=== PATIENT | female | born 1945 | race Caucasian/White ===

== ENCOUNTER → 2019-09-11 11:00 | Outpatient (BNVA) | payer MEDICARE, OTHER, SELFPAY | PROVIDERS: Family Provider Family Medicine; PCP Family Medicine; Visit Provider Nurse Practitioner Family | DX: I10 Essential (primary) hypertension (principal); E78.5 Hyperlipidemia, unspecified; E11.9 Type 2 diabetes mellitus without complications; I48.91 Unspecified atrial fibrillation; E03.9 Hypothyroidism, unspecified | CPT/HCPCS: 80048; 80061; 82044; 83036; 84460 ==

== ENCOUNTER → 2019-10-02 10:27 | Outpatient (BNVA) | payer MEDICARE, OTHER, SELFPAY | PROVIDERS: Family Provider Family Medicine; PCP Family Medicine; Visit Provider Nurse Practitioner Family | DX: R32 Unspecified urinary incontinence (principal); R31.9 Hematuria, unspecified | CPT/HCPCS: 81003 ==

== ENCOUNTER → 2019-10-04 16:30 | Outpatient (BNVA) | payer MEDICARE, OTHER, SELFPAY | PROVIDERS: Family Provider Family Medicine; PCP Nurse Practitioner Family; Visit Provider Internal Medicine Cardiovascular Disease | DX: I35.0 Nonrheumatic aortic (valve) stenosis (principal); I50.32 Chronic diastolic (congestive) heart failure; R06.02 Shortness of breath; I48.0 Paroxysmal atrial fibrillation; E78.2 Mixed hyperlipidemia; E11.65 Type 2 diabetes mellitus with hyperglycemia; E03.9 Hypothyroidism, unspecified; G47.33 Obstructive sleep apnea (adult) (pediatric); I73.9 Peripheral vascular disease, unspecified; I11.0 Hypertensive heart disease with heart failure | CPT/HCPCS: 80048; 80162; 83880 ==

== ENCOUNTER 2019-10-19 10:21 | Outpatient (CLI) | payer MEDICARE, OTHER, SELFPAY ==
--- NOTE | 2019-10-19 10:32 | USCV_ITS ---
Oumou Rowan Age: 73 Gender: F : 1945 Exam Date: 10/19/2019 10:52 Ordering Phys: Tina Saunders MD ([email or web address]) Technologist: Shira Santamaria Exam Location: [facility] [place] Indication: BP: 120 / 70 HR: 62 Rhythm: Sinus Technical Quality: Adequate MEASUREMENTS (Male / Female) Normal Values 2D ECHO LV Diastolic Diameter PLAX 3.6 cm 4.2 - 5.9 / 3.9 - 5.3 cm LV Systolic Diameter PLAX 3.8 cm LV Chamber Size 3.9 cm IVS Diastolic Thickness 1.1 cm 0.6 - 1.0 / 0.6 - 0.9 cm IVS Systolic Thickness 1.7 cm LVPW Diastolic Thickness 1.3 cm 0.6 - 1.0 / 0.6 - 0.9 cm LVPW Systolic Thickness 1.6 cm RV Chamber Size 4.0 cm LVOT Diameter 2.1 cm LV Ejection Fraction 2D Teich 16.9 % LV Ejection Fraction MOD 2C 58.3 % LV Ejection Fraction 2C AL 54.6 % LA Diameter 5.1 cm LA Width 3.2 cm LA Height 5.1 cm RA Width 4.0 cm RA Height 4.8 cm Aorta at Sinotubular Diameter 2.3 cm M-MODE LV Diastolic Diameter MM 3.9 cm 4.2 - 5.9 / 3.9 - 5.3 cm LV Systolic Diameter MM 2.7 cm LV Ejection Fraction MM Teich 58.5 % IVS Diastolic Thickness MM 1.1 cm 0.6 - 1.0 / 0.6 - 0.9 cm IVS Systolic Thickness MM 1.4 cm LVPW Diastolic Thickness MM 0.9 cm 0.6 - 1.0 / 0.6 - 0.9 cm LVPW Systolic Thickness MM 1.7 cm RV Diastolic Diameter MM 1.8 cm Aortic Annulus Diameter 1.9 cm LA Ao Ratio MM 2.7 MV E Point Septal Separation 0.3 cm DOPPLER AV Peak Velocity 444.0 cm/s LVOT Peak Velocity 101.0 cm/s AV Area Cont Eq vti 0.9 cm squared AV Area Cont Eq pk 0.8 cm squared MV Area PHT 2.9 cm squared Mitral E to A Ratio 1.0 MV E' Velocity 8.0 cm/s Mitral E to MV E' Ratio 13.7 Mitral E to LV E' Lateral Ratio 14.3 Mitral E to LV E' Septal Ratio 13.2 TR Peak Velocity 191.6 cm/s TR Peak Gradient 14.7 mmHg TR Mean Velocity 136.5 cm/s TR Mean Gradient 8.5 mmHg TR Velocity Time Integral 60.3 cm TV Peak E Velocity 70.0 cm/s Right Atrial Pressure 5.0 mmHg Pulmonary Artery Systolic Pressu 19.7 mmHg PV Peak Velocity 71.0 cm/s RV Acceleration Time 0.1 s RV Ejection Time 0.4 s RV AcT/ET 0.3 FINDINGS Left Ventricle Normal left ventricular size and systolic function, EF 62 %. Mild left ventricular hypertrophy. No regional wall motion abnormalities. Grade II/IV diastolic dysfunction, moderately elevated filling pressures. Right Ventricle Normal right ventricular size and systolic function. Right Atrium Mildly increased right atrial size. Left Atrium Mildly increased left atrial size. Mitral Valve Thickened mitral valve. Moderate to heavy mitral annular calcification. Aortic Valve Thickened aortic valve. Severe aortic valve stenosis, mean gradient 43.6 mmHg, LUNA 0.87 cm squared. Peak velocity was 4.4 m/s with a peak gradient of 79 mmHg. Tricuspid Valve Mild tricuspid valve regurgitation. Pulmonic Valve Pulmonic valve not well visualized. Pericardium No pericardial effusion. Aorta Normal aortic annulus size. CONCLUSIONS Severe aortic valve stenosis with a valve area of 0.87 cm squared.(Peak velocity of 4.4 m/s with a peak gradient of 79 mmHg and a mean gradient of 44 mmHg) Normal left ventricular size and systolic function, EF 62 %. Mild left ventricular hypertrophy. No regional wall motion abnormalities. Grade II/IV diastolic dysfunction, moderately elevated filling pressures. Thickened mitral valve. Moderate to heavy mitral annular calcification. Mild tricuspid valve regurgitation. Compared to the study from 06/07/2018, there is slight worsening of the mean gradient across the aortic valve Dr Tina Saunders MD FAC (Electronically Signed) Final Date: 19 October 2019 14:59 S
== END 2019-10-19 10:22 | disposition home or self-care (01) ==
LOC: US 10:23
PROVIDERS: Family Provider Nurse Practitioner Family; PCP Nurse Practitioner Family; Visit Provider Internal Medicine Cardiovascular Disease
DX: I08.3 Combined rheumatic disorders of mitral, aortic and tricuspid valves (principal)
CPT/HCPCS: 93306

== ENCOUNTER → 2019-12-03 14:52 | Outpatient (BNVA) | payer MEDICARE, OTHER, SELFPAY | PROVIDERS: Family Provider Nurse Practitioner Family; PCP Nurse Practitioner Family; Visit Provider Nurse Practitioner Family | DX: N39.46 Mixed incontinence (principal) | CPT/HCPCS: 81001 ==

== ENCOUNTER → 2019-12-26 11:28 | Outpatient (BNVA) | payer MEDICARE, OTHER, SELFPAY | PROVIDERS: Family Provider Nurse Practitioner Family; PCP Nurse Practitioner Family; Visit Provider Nurse Practitioner Family | DX: E03.9 Hypothyroidism, unspecified (principal); E11.65 Type 2 diabetes mellitus with hyperglycemia; I50.32 Chronic diastolic (congestive) heart failure; Z00.00 Encounter for general adult medical examination without abnormal findings; L03.90 Cellulitis, unspecified | CPT/HCPCS: 83036; 84443 ==

== ENCOUNTER → 2020-01-21 15:23 | Outpatient (BNVA) | payer MEDICARE, OTHER, SELFPAY | PROVIDERS: Family Provider Nurse Practitioner Family; PCP Nurse Practitioner Family; Visit Provider Nurse Practitioner Family | DX: T81.41XA Infection following a procedure, superficial incisional surgical site, initial encounter (principal); Z79.01 Long term (current) use of anticoagulants; T81.49XA Infection following a procedure, other surgical site, initial encounter | CPT/HCPCS: 85610; 87070 ==

== ENCOUNTER → 2020-02-05 14:46 | Outpatient (BNVA) | payer MEDICARE, OTHER, SELFPAY | PROVIDERS: Family Provider Nurse Practitioner Family; PCP Nurse Practitioner Family; Visit Provider Registered Nurse | DX: Z79.01 Long term (current) use of anticoagulants (principal) | CPT/HCPCS: 85610 ==

== ENCOUNTER → 2020-02-12 14:25 | Outpatient (BNVA) | payer MEDICARE, OTHER, SELFPAY | PROVIDERS: Family Provider Nurse Practitioner Family; PCP Nurse Practitioner Family; Visit Provider Nurse Practitioner Family | DX: Z95.2 Presence of prosthetic heart valve (principal) | CPT/HCPCS: 85610 ==

== ENCOUNTER → 2020-02-18 13:33 | Outpatient (BNVA) | payer MEDICARE, OTHER, SELFPAY | PROVIDERS: Family Provider Nurse Practitioner Family; PCP Nurse Practitioner Family; Visit Provider Nurse Practitioner Family | DX: I50.32 Chronic diastolic (congestive) heart failure (principal); D69.9 Hemorrhagic condition, unspecified | CPT/HCPCS: 85610 ==

== ENCOUNTER → 2020-02-25 13:57 | Outpatient (BNVA) | payer MEDICARE, OTHER, SELFPAY | PROVIDERS: Family Provider Nurse Practitioner Family; PCP Nurse Practitioner Family; Visit Provider Nurse Practitioner Family | DX: I35.0 Nonrheumatic aortic (valve) stenosis (principal); Z95.2 Presence of prosthetic heart valve | CPT/HCPCS: 85610 ==

== ENCOUNTER → 2020-02-28 15:40 | Outpatient (BNVA) | payer MEDICARE, OTHER, SELFPAY | PROVIDERS: Family Provider Nurse Practitioner Family; PCP Nurse Practitioner Family; Visit Provider Internal Medicine Cardiovascular Disease | DX: R06.02 Shortness of breath (principal); I50.32 Chronic diastolic (congestive) heart failure; Z95.2 Presence of prosthetic heart valve; I48.0 Paroxysmal atrial fibrillation; G47.33 Obstructive sleep apnea (adult) (pediatric); E78.2 Mixed hyperlipidemia; E11.65 Type 2 diabetes mellitus with hyperglycemia; F17.210 Nicotine dependence, cigarettes, uncomplicated; I11.0 Hypertensive heart disease with heart failure; I50.43 Acute on chronic combined systolic (congestive) and diastolic (congestive) heart failure | CPT/HCPCS: 80048; 83880 ==

== ENCOUNTER → 2020-03-05 14:26 | Outpatient (BNVA) | payer MEDICARE, OTHER, SELFPAY | PROVIDERS: Family Provider Nurse Practitioner Family; PCP Nurse Practitioner Family; Visit Provider Registered Nurse | DX: Z95.2 Presence of prosthetic heart valve (principal) | CPT/HCPCS: 85610 ==

== ENCOUNTER → 2020-03-18 13:19 | Outpatient (BNVA) | payer MEDICARE, OTHER, SELFPAY | PROVIDERS: Family Provider Nurse Practitioner Family; PCP Nurse Practitioner Family; Visit Provider Nurse Practitioner Family | DX: I48.0 Paroxysmal atrial fibrillation (principal); I50.32 Chronic diastolic (congestive) heart failure; Z95.2 Presence of prosthetic heart valve; I73.9 Peripheral vascular disease, unspecified; J30.2 Other seasonal allergic rhinitis; Z79.01 Long term (current) use of anticoagulants | CPT/HCPCS: 80048; 83880; 85610 ==

== ENCOUNTER → 2020-04-02 13:36 | Outpatient (BNVA) | payer MEDICARE, OTHER, SELFPAY | PROVIDERS: Family Provider Nurse Practitioner Family; PCP Nurse Practitioner Family; Visit Provider Pediatrics | DX: Z95.2 Presence of prosthetic heart valve (principal) | CPT/HCPCS: 85610 ==

== ENCOUNTER → 2020-04-03 16:30 | Outpatient (BNVA) | payer MEDICARE, OTHER, SELFPAY | PROVIDERS: Family Provider Nurse Practitioner Family; PCP Nurse Practitioner Family; Visit Provider Nurse Practitioner Family | DX: E11.59 Type 2 diabetes mellitus with other circulatory complications (principal); I25.10 Atherosclerotic heart disease of native coronary artery without angina pectoris | CPT/HCPCS: 83036 ==

== ENCOUNTER → 2020-04-16 11:08 | Outpatient (BNVA) | payer MEDICARE, OTHER, SELFPAY | PROVIDERS: Family Provider Nurse Practitioner Family; PCP Nurse Practitioner Family; Visit Provider Nurse Practitioner Family | DX: E03.9 Hypothyroidism, unspecified (principal); I48.0 Paroxysmal atrial fibrillation | CPT/HCPCS: 84443 ==

== ENCOUNTER → 2020-04-30 14:09 | Outpatient (BNVA) | payer MEDICARE, OTHER, SELFPAY | PROVIDERS: Family Provider Nurse Practitioner Family; PCP Nurse Practitioner Family; Visit Provider Internal Medicine Cardiovascular Disease | DX: I48.0 Paroxysmal atrial fibrillation (principal); I50.32 Chronic diastolic (congestive) heart failure | CPT/HCPCS: 85610 ==

== ENCOUNTER → 2020-05-07 13:13 | Outpatient (BNVA) | payer MEDICARE, OTHER, SELFPAY | PROVIDERS: Family Provider Nurse Practitioner Family; PCP Nurse Practitioner Family; Visit Provider Internal Medicine Cardiovascular Disease | DX: I35.0 Nonrheumatic aortic (valve) stenosis (principal) | CPT/HCPCS: 85610 ==

== ENCOUNTER → 2020-05-15 10:41 | Outpatient (BNVA) | payer MEDICARE, OTHER, SELFPAY | PROVIDERS: Family Provider Nurse Practitioner Family; PCP Nurse Practitioner Family; Visit Provider Internal Medicine Cardiovascular Disease | DX: I35.0 Nonrheumatic aortic (valve) stenosis (principal); Z95.2 Presence of prosthetic heart valve | CPT/HCPCS: 85610 ==

== ENCOUNTER 2020-06-04 14:59 | Outpatient (CLI) | payer MEDICARE, OTHER, SELFPAY ==
--- NOTE | 2020-06-04 15:00 | USCV_ITS ---
Oumou Rowan Age: 74 Gender: F : 1945 Exam Date: 06/04/2020 15:15 Ordering Phys: Tina Saunders MD ([email or web address]) Technologist: Shira Santamaria Exam Location: [facility] [place] Indication: TAVR BP: 140 / 76 HR: 70 Rhythm: Sinus Technical Quality: Adequate MEASUREMENTS (Male / Female) Normal Values 2D ECHO LV Diastolic Diameter PLAX 3.5 cm 4.2 - 5.9 / 3.9 - 5.3 cm LV Systolic Diameter PLAX 2.7 cm LV Chamber Size 3.9 cm IVS Diastolic Thickness 1.7 cm 0.6 - 1.0 / 0.6 - 0.9 cm IVS Systolic Thickness 1.5 cm LVPW Diastolic Thickness 0.9 cm 0.6 - 1.0 / 0.6 - 0.9 cm LVPW Systolic Thickness 1.5 cm RV Chamber Size 2.9 cm LVOT Diameter 2.0 cm LV Ejection Fraction 2D Teich 44.0 % LV Ejection Fraction MOD 2C 83.4 % LV Ejection Fraction 2C AL 84.9 % LA Diameter 4.8 cm LA Width 3.3 cm LA Height 5.7 cm RA Width 3.8 cm RA Height 5.3 cm Aorta at Sinotubular Diameter 2.2 cm M-MODE LV Diastolic Diameter MM 5.2 cm 4.2 - 5.9 / 3.9 - 5.3 cm LV Systolic Diameter MM 3.9 cm LV Ejection Fraction MM Teich 48.9 % IVS Diastolic Thickness MM 0.6 cm 0.6 - 1.0 / 0.6 - 0.9 cm IVS Systolic Thickness MM 1.6 cm LVPW Diastolic Thickness MM 1.3 cm 0.6 - 1.0 / 0.6 - 0.9 cm LVPW Systolic Thickness MM 1.6 cm RV Diastolic Diameter MM 1.2 cm Aortic Annulus Diameter 2.5 cm LA Ao Ratio MM 2.3 MV E Point Septal Separation 0.5 cm DOPPLER AV Peak Velocity 259.0 cm/s LVOT Peak Velocity 87.0 cm/s AV Area Cont Eq vti 1.1 cm squared AV Area Cont Eq pk 1.0 cm squared MV Area PHT 3.5 cm squared Mitral E to A Ratio 1.3 MV E' Velocity 61.5 cm/s Mitral E to MV E' Ratio 17.9 Mitral E to LV E' Lateral Ratio 16.8 Mitral E to LV E' Septal Ratio 19.3 TR Peak Velocity 170.6 cm/s TR Peak Gradient 11.6 mmHg TR Mean Velocity 123.4 cm/s TR Mean Gradient 6.5 mmHg TR Velocity Time Integral 43.0 cm TV Peak E Velocity 84.0 cm/s Right Atrial Pressure 3.0 mmHg Pulmonary Artery Systolic Pressu 14.6 mmHg PV Peak Velocity 64.0 cm/s RV Acceleration Time 0.2 s RV Ejection Time 0.3 s RV AcT/ET 0.5 FINDINGS Left Ventricle Mild diffuse hypokinesia of the anteroseptal segment. Normal LV size with ejection fraction of around 50-55 % Right Ventricle Normal right ventricular size and systolic function. Right Atrium Normal right atrial size. Left Atrium Moderately increased left atrial size. Echodense structure in the interatrial septum? Occluder device Mitral Valve Moderate mitral annular calcification. Aortic Valve The bioprosthetic valve the aortic position appears to be well seated. Peak velocity across the aortic valve is 2.6 m/s with a peak gradient of 27 mmHg and a mean gradient of 14 mmHg. Valve area is calculated to be 1.13 cm squared Tricuspid Valve No gross abnormality noted Pulmonic Valve Pulmonic valve not well visualized. Pericardium No pericardial effusion. Aorta Normal aortic annulus size. CONCLUSIONS Mild diffuse hypokinesia of the anteroseptal segment. Normal LV size with ejection fraction of around 50-55 %. The bioprosthetic valve the aortic position appears to be well seated. Peak velocity across the aortic valve is 2.6 m/s with a peak gradient of 27 mmHg and a mean gradient of 14 mmHg. Valve area is calculated to be 1.13 cm squared. Moderate mitral annular calcification. Moderately increased left atrial size. Echodense structure in the interatrial septum? Occluder device There is no pericardial effusion. There are no intracardiac masses. Compared to the previous study from 10/19/2019, the aortic valve is currently replaced Dr Tina Saunders MD [facility] (Electronically Signed) Final Date: 04 June 2020 16:49 S
== END 2020-06-04 15:00 | disposition home or self-care (01) ==
LOC: RAD 15:05
PROVIDERS: PCP Nurse Practitioner Family; Visit Provider Internal Medicine Cardiovascular Disease
DX: Z95.2 Presence of prosthetic heart valve (principal)
CPT/HCPCS: 93306

== ENCOUNTER → 2020-06-05 14:22 | Outpatient (BNVA) | payer MEDICARE, OTHER, SELFPAY | PROVIDERS: Family Provider Nurse Practitioner Family; PCP Nurse Practitioner Family; Visit Provider Nurse Practitioner Family | DX: I35.0 Nonrheumatic aortic (valve) stenosis (principal) | CPT/HCPCS: 85610 ==